=== PATIENT | female | born 1995 | race African-American/Black ===

== ENCOUNTER 2016-11-13 13:36 | Emergency (ER) | payer OTHER ==
[2016-11-13 13:54] VITALS: TEMP 98.8
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
[2016-11-13 14:43] LABS: Appearance,Urine Clear (Clear); Bilirubin,Urine Negative (Negative); Glucose,Urine (UA) Negative (Negative); Ketones,Urine Negative (Negative); Leukocyte Esterase,Urine Small (Negative); Mucus,Urine Rare /hpf; Nitrite,Urine Negative (Negative); Particle Count 1647; Protein,Urine Negative (Negative); RBC,Urine 1 /hpf (0-5); Specific Gravity,Urine 1.009 (1.001-1.035); Squamous Epithelial Cell,Urine <1 /hpf (0-4); UA Billing (MACRO vs. MICRO) MICRO; Urobilinogen,Urine <2.0 mg/dL (<2.0); WBC,Urine 2 /hpf (0-5)
[2016-11-13 15:42] VITALS: BP 139/88; PULSE 88; RESP 18
[2016-11-13] MEDS ORDERED: cefTRIAXone 250 MG VIAL IM STA (15:49)
[2016-11-13] MEDS ORDERED: AZITHROMYCIN 500 MG TAB PO STA (15:49)
[2016-11-14 14:47] LABS: Chlamydia/GC Source Vaginal
== END 2016-11-13 16:10 | disposition home or self-care (01) ==
LOC: EC 13:36
DX: J02.9 Acute pharyngitis, unspecified (principal); Z20.2 Contact with and (suspected) exposure to infections with a predominantly sexual mode of transmission; N89.8 Other specified noninflammatory disorders of vagina; Z91.018 Allergy to other foods; Z98.51 Tubal ligation status; Z98.890 Other specified postprocedural states
CPT/HCPCS: 87591; 87491; 81001; 87808; 87070; 87081; 87430; 99283; 96372; J0696; 87205

== ENCOUNTER 2018-01-17 18:11 | Emergency (ER) | payer OTHER ==
[2018-01-17 18:44] VITALS: RESP 18
[2018-01-17] MEDS ORDERED: SODIUM CHLORIDE 0.9% 1,000 ML IV STA (19:18)
--- NOTE | 2018-01-17 19:49 | ED ---
Abdominal Pain HPI - General Source: patient, RN notes reviewed Mode of arrival: ambulatory Limitations: no limitations <Jodi Arreola - Last Filed: 01/17/18 22:11> <Marimar Gallo - Last Filed: 01/18/18 02:42> - General Chief Complaint: Abdominal Pain Stated Complaint: ABDOMINAL PAIN, VOMITING Time Seen by Provider: 01/17/18 19:07 - History of Present Illness Initial Comments: This is a 22-year-old female presents to the emergency department with chief complaint of abdominal pain and vomiting. Patient reports intermittent episodes of a long-lasting periumbilical and suprapubic pain for the past 2 weeks. She states that she has also had intermittent episodes of vomiting. She states that her appetite has been low. She denies any fevers or chills, chest pain shortness of breath, diarrhea or constipation, dysuria or hematuria. Patient states that she has had a tubal ligation 2 years ago. She denies any past medical history takes no medications. (Jodi Arreola) - Related Data Home Medications Medication Instructions Recorded Confirmed No Known Home Medications 01/17/18 01/17/18 Allergies Allergy/AdvReac Type Severity Reaction Status Date / Time [place] And Derivatives Allergy Swelling Verified 01/17/18 19:08 [[place]] Review of Systems ROS Other: All systems not noted in ROS Statement are negative. <Jodi Arreola - Last Filed: 01/17/18 22:11> ROS Other: All systems not noted in ROS Statement are negative. <Marimar Gallo - Last Filed: 01/18/18 02:42> ROS Statement: Those systems with pertinent positive or pertinent negative responses have been documented in the HPI. Past Medical History Past Medical History: No Reported History History of Any Multi-Drug Resistant Organisms: None Reported Past Surgical History: Tonsillectomy, Tubal Ligation Past Psychological History: No Psychological Hx Reported Smoking Status: Never smoker Past Alcohol Use History: Occasional, Rare Past Drug Use History: None Reported <Jodi Arreola - Last Filed: 01/17/18 22:11> General Exam Limitations: no limitations <Jodi Arreola - Last Filed: 01/17/18 22:11> <Marimar Gallo - Last Filed: 01/18/18 02:42> - General Exam Comments Initial Comments: General: Awake and alert, well-developed; in no apparent distress. Patient does not appear acutely all. HEENT: Head atraumatic, normocephalic. Pupils are equal, round and reactive to light. Extraocular movements intact. Oropharynx moist without erythema or exudate. Neck: Supple. Normal ROM. Cardiovascular: Regular rate and rhythm. No murmurs, rubs or gallops. Chest symmetrical. Respiratory: Lungs clear to auscultation bilaterally. No wheezes, rales or rhonchi. Normal respiratory effort with no use of accessory muscles. Abdomen: Soft, non-distended. Tenderness on palpation of suprapubic region and right lower quadrant. Voluntary guarding. No rebound or rigidity. Normal bowel sounds in all 4 quadrants. Musculoskeletal: Normal ROM, no tenderness bilateral upper and lower extremities. Ambulating normally. Skin: [place], warm and dry without rashes or lesions. Neurological: Alert and oriented x3. CN II-XII grossly intact. Speech is fluent and answers are appropriate. No focal neuro deficits. Psychiatric: Normal mood and affect. No overt signs of depression or anxiety noted. (Jodi Arreola) Vital Signs 01/17/18 01/17/18 18:41 22:21 Temperature 98.2 F 97.7 F Pulse Rate 66 77 Respiratory 18 18 Rate Blood Pressure 135/93 122/75 O2 Sat by Pulse 100 98 Oximetry Medical Decision Making - Lab Data Result diagrams: 01/17/18 19:22 01/17/18 19:22 - Radiology Data Radiology results: report reviewed <Jodi Arreola - Last Filed: 01/17/18 22:11> - Lab Data Result diagrams: 01/17/18 19:22 01/17/18 19:22 <Marimar Gallo - Last Filed: 01/18/18 02:42> - Medical Decision Making This is a 22-year-old female who presents to the emergency department with chief complaint of abdominal pain 2 weeks. Patient reports lower abdominal pain and vomiting. There is tenderness on palpation of right lower quadrant and suprapubic region. Ultrasounds were obtained which revealed no evidence for appendicitis and no significant abnormalities on ultrasound of the pelvis. CBC did reveal a hemoglobin of 9.9. This was discussed with patient who states that she does have a history of anemia. UA is unremarkable. Case discussed with attending physician, Dr. Gallo. Recommended following up the patient's primary care provider. Patient has been in no acute distress and does not appear acutely ill. Vital signs are stable. She will be discharged home at this time. Recommended following up with her primary care provider. She is in agreement voices understanding. All questions were answered. (Jodi Arreola) I was available for consultation in the emergency department. The history and physical exam were done by the midlevel provider. I was consulted for this patient's care. I reviewed the case with the midlevel provider and based on their presentation of the patient, I agree with the assessment, medical decision making and plan of care as documented. (Marimar Gallo) - Lab Data Lab Results 01/17/18 01/17/18 01/17/18 Range/Units 19:22 19:22 19:22 WBC 3.9 (3.8-10.6) k/uL RBC 3.91 (3.80-5.40) m/uL Hgb 9.9 L (11.4-16.0) gm/dL Hct 32.9 L (34.0-46.0) % MCV 84.1 (80.0-100.0) fL MCH 25.3 (25.0-35.0) pg MCHC 30.1 L (31.0-37.0) g/dL RDW 16.3 H (11.5-15.5) % Plt Count 399 (150-450) k/uL Neutrophils % 45 % Lymphocytes % 41 % Monocytes % 6 % Eosinophils % 3 % Basophils % 1 % Neutrophils # 1.8 (1.3-7.7) k/uL Lymphocytes # 1.6 (1.0-4.8) k/uL Monocytes # 0.3 (0-1.0) k/uL Eosinophils # 0.1 (0-0.7) k/uL Basophils # 0.0 (0-0.2) k/uL Hypochromasia Marked Anisocytosis Slight Sodium 139 (137-145) mmol/L Potassium 4.0 (3.5-5.1) mmol/L Chloride 106 (98-107) mmol/L Carbon Dioxide 25 (22-30) mmol/L Anion Gap 8 mmol/L BUN 10 (7-17) mg/dL Creatinine 0.65 (0.52-1.04) mg/dL Est GFR (CKD-EPI)AfAm >90 (>60 ml/min/1.73 sqM) Est GFR (CKD-EPI)NonAf >90 (>60 ml/min/1.73 sqM) Glucose 86 (74-99) mg/dL Calcium 9.3 (8.4-10.2) mg/dL Total Bilirubin 0.7 (0.2-1.3) mg/dL AST 39 H (14-36) U/L ALT 6 L (9-52) U/L Alkaline Phosphatase 51 (38-126) U/L Total Protein 7.9 (6.3-8.2) g/dL Albumin 4.1 (3.5-5.0) g/dL Amylase 67 (30-110) U/L Lipase 75 (23-300) U/L Urine Color Urine Appearance (Clear) Urine pH (5.0-8.0) Ur Specific [place] (1.001-1.035) Urine Protein (Negative) Urine Glucose (UA) (Negative) Urine Ketones (Negative) Urine Blood (Negative) Urine Nitrite (Negative) Urine Bilirubin (Negative) Urine Urobilinogen (<2.0) mg/dL Ur Leukocyte Esterase (Negative) Urine HCG, Qual Not Detected (Not Detectd) 01/17/18 Range/Units 19:22 WBC (3.8-10.6) k/uL RBC (3.80-5.40) m/uL Hgb (11.4-16.0) gm/dL Hct (34.0-46.0) % MCV (80.0-100.0) fL MCH (25.0-35.0) pg MCHC (31.0-37.0) g/dL RDW (11.5-15.5) % Plt Count (150-450) k/uL Neutrophils % % Lymphocytes % % Monocytes % % Eosinophils % % Basophils % % Neutrophils # (1.3-7.7) k/uL Lymphocytes # (1.0-4.8) k/uL Monocytes # (0-1.0) k/uL Eosinophils # (0-0.7) k/uL Basophils # (0-0.2) k/uL Hypochromasia Anisocytosis Sodium (137-145) mmol/L Potassium (3.5-5.1) mmol/L Chloride (98-107) mmol/L Carbon Dioxide (22-30) mmol/L Anion Gap mmol/L BUN (7-17) mg/dL Creatinine (0.52-1.04) mg/dL Est GFR (CKD-EPI)AfAm (>60 ml/min/1.73 sqM) Est GFR (CKD-EPI)NonAf (>60 ml/min/1.73 sqM) Glucose (74-99) mg/dL Calcium (8.4-10.2) mg/dL Total Bilirubin (0.2-1.3) mg/dL AST (14-36) U/L ALT (9-52) U/L Alkaline Phosphatase (38-126) U/L Total Protein (6.3-8.2) g/dL Albumin (3.5-5.0) g/dL Amylase (30-110) U/L Lipase (23-300) U/L Urine Color Colorless Urine Appearance Clear (Clear) Urine pH 8.0 (5.0-8.0) Ur Specific [place] 1.008 (1.001-1.035) Urine Protein Negative (Negative) Urine Glucose (UA) Negative (Negative) Urine Ketones Negative (Negative) Urine Blood Negative (Negative) Urine Nitrite Negative (Negative) Urine Bilirubin Negative (Negative) Urine Urobilinogen <2.0 (<2.0) mg/dL Ur Leukocyte Esterase Negative (Negative) Urine HCG, Qual (Not Detectd) - Radiology Data Ultrasound abdomen appendectomy impression: Appendix appears to be visualized and appears normal. No solid or cystic mass. Ultrasound transvaginal impression: There is free fluid in the cul-de-sac. Minimal endometrial fluid. No adnexal mass. No evidence of ovarian torsion. ( Jodi Arreola) Disposition Is patient prescribed a controlled substance at d/c from ED?: No Time of Disposition: 22:10 <Jodi Arreola - Last Filed: 01/17/18 22:11> <Marimar Gallo - Last Filed: 01/18/18 02:42> Clinical Impression: Abdominal pain, Vomiting Disposition: HOME SELF-CARE Condition: Good Instructions: Ondansetron (By mouth), Acute Nausea and Vomiting (ED), Abdominal Pain (ED) Additional Instructions: Please take medications as prescribed. Please follow up with primary care provider within 1-2 days. Return to emergency department if symptoms should worsen or any concerns arise. Referrals: None,Stated [Primary Care Provider] - 1-2 days
[2018-01-17 20:37] LABS: Anisocytosis Slight; Basophils % (A) 1 %; Eosinophils # (A) 0.1 k/uL (0-0.7); Eosinophils % (A) 3 %; HCT 32.9 % (34.0-46.0); HGB 9.9 gm/dL (11.4-16.0); Hypochromasia Marked; Lymphocytes # (A) 1.6 k/uL (1.0-4.8); Lymphocytes % (A) 41 %; MCH 25.3 pg (25.0-35.0); MCHC 30.1 g/dL (31.0-37.0); MCV 84.1 fL (80.0-100.0); Monocytes # (A) 0.3 k/uL (0-1.0); Monocytes % (A) 6 %; Neutrophils # (A) 1.8 k/uL (1.3-7.7); Neutrophils % (A) 45 %; Platelet Count 399 k/uL (150-450); RBC 3.91 m/uL (3.80-5.40); RDW 16.3 % (11.5-15.5); WBC 3.9 k/uL (3.8-10.6)
[2018-01-17 20:38] LABS: Appearance,Urine Clear (Clear); Bilirubin,Urine Negative (Negative); Blood,Urine Negative (Negative); Color,Urine Colorless; Glucose,Urine (UA) Negative (Negative); Ketones,Urine Negative (Negative); Leukocyte Esterase,Urine Negative (Negative); Nitrite,Urine Negative (Negative); Protein,Urine Negative (Negative); Specific Gravity,Urine 1.008 (1.001-1.035); Urobilinogen,Urine <2.0 mg/dL (<2.0)
--- NOTE | 2018-01-17 20:40 | US ---
EXAMINATION TYPE: US abdomen APPY DATE OF EXAM: 01/17/2018 COMPARISON: NONE CLINICAL HISTORY: Pain. midline pelvic pain for weeks, no fever APPENDIX AP Diameter (normal < 6mm): 6mm, compresses to 4mm Measured outer wall to outer wall. Is the appendix seen in its entirety from the proximal cecum to distal end: no Is the appendix compressible: yes Does the appendix wall appear hypervascular: no Is an appendicolith present: no Is there inflammatory changes or free fluid present: no Tubular structure within RLQ that may represent appendix was compressible with no obvious signs of in flammation. IMPRESSION: Appendix appears to be visualized and appears normal. No solid or cystic mass.
--- NOTE | 2018-01-17 20:41 | US ---
EXAMINATION TYPE: US transvaginal DATE OF EXAM: 01/17/2018 COMPARISON: NONE CLINICAL HISTORY: suprapubic tenderness. midline pain for weeks, TECHNIQUE: TV. Date of LMP: 01/02/2018 EXAM MEASUREMENTS: Uterus: 8.6 x 6.3 x 4.0 cm Endometrial Stripe: 0.7 cm Right Ovary: 2.5 x 2.2 x 1.8 cm Left Ovary: 2.6 x 1.9 x 1.6 cm 1. Uterus: Anteverted wnl 2. Endometrium: fluid seen within canal toward fundal portion 3. Right Ovary: follicles seen under 1cm 4. Left Ovary: follicles seen under 1cm Spectral, color and waveform doppler imaging shows good arterial and venous flow within the ovaries ; there is no evidence for ovarian torsion. 5. Bilateral Adnexa: wnl 6. Posterior cul-de-sac: free fluid seen IMPRESSION: There is free fluid in the cul-de-sac. Minimal endometrial fluid. No adnexal mass. No zehra dence of ovarian torsion.
[2018-01-17 20:53] LABS: ALT 6 U/L (9-52); AST 39 U/L (14-36); Albumin 4.1 g/dL (3.5-5.0); Alkaline Phosphatase 51 U/L (38-126); Amylase 67 U/L (30-110); Anion Gap 8 mmol/L; Blood Urea Nitrogen 10 mg/dL (7-17); Calcium 9.3 mg/dL (8.4-10.2); Carbon Dioxide 25 mmol/L (22-30); Chloride 106 mmol/L (98-107); Glucose 86 mg/dL (74-99); Lipase 75 U/L (23-300); Sodium 139 mmol/L (137-145); Total Bilirubin 0.7 mg/dL (0.2-1.3); Total Protein 7.9 g/dL (6.3-8.2)
[2018-01-17] MEDS ORDERED: ONDANSETRON 4 MG ODT STARTER PACK 2 TAB BTL PO STA (22:06)
[2018-01-17 22:21] VITALS: BP 122/75; PULSE 77; TEMP 97.7
== END 2018-01-17 22:21 | disposition home or self-care (01) ==
LOC: EC 18:11
DX: R10.33 Periumbilical pain (principal); R10.31 Right lower quadrant pain; R11.10 Vomiting, unspecified; Z91.018 Allergy to other foods; Z98.51 Tubal ligation status
CPT/HCPCS: 99284 ×2; 96360 ×2; 96361 ×3; 36415; 80053; 82150; 83690; 85025; 81003; 81025; 93975; 76705; 76830; S0119